=== PATIENT | male | born 1960 | race Caucasian/White ===

== ENCOUNTER → 2016-08-20 | Outpatient (CLI) | payer BC ==
[~2016-08-20] MED LIST: AUGMENTIN 875 M1 TA1 PO; CLARITIN10 MG PO; FORTE-PLUS-241 CAP PO; MOTRIN800 MG PO; PERCOCET 325 MG1 TA2 PO; TETRACYCLINE250 MG; VITAMIN D5000 I2 PO; ZANTAC 150150 MG PO; ZANTAC 300300 MG PO
== END | disposition home or self-care (01) ==
LOC: LAB 14:07 → RAD 14:07
DX: Z01.818 Encounter for other preprocedural examination (principal); K40.90 Unilateral inguinal hernia, without obstruction or gangrene, not specified as recurrent

== ENCOUNTER → 2016-08-21 | Outpatient (CLI) | payer BC ==
[2016-08-21 04:19] LABS: BILIRUBIN NEGATIVE (NEGATIVE); BLOOD NEGATIVE (NEGATIVE); CLARITY CLEAR (CLEAR); COLOR YELLOW (YELLOW); GLUCOSE NEGATIVE (NEGATIVE); KETONE NEGATIVE (NEGATIVE); LEUKO ESTERASE NEGATIVE (NEGATIVE); NITRITE NEGATIVE (NEGATIVE); PH 7.5 (5.0-9.0); PROTEIN NEGATIVE (NEGATIVE); UROBILINOGEN 0.2 E.U./dl (0.2-1.0)
[2016-08-21 04:20] LABS: BASO # 0.1 10*3/uL (0.0-0.1); BASO % 0.7 % (0.0-1.0); EOS # 0.4 10*3/uL (0.0-0.4); EOS % 5.3 % (1.0-4.0); HEMATOCRIT 47.5 % (42.0-52.0); HEMOGLOBIN 15.8 g/dl (14.0-18.0); LYMPH # 3.2 10*3/uL (1.3-4.4); LYMPH % 38.1 % (27.0-41.0); MEAN CELL VOLUME 93.3 fl (80.0-94.0); MEAN CORPUSCULAR HGB CONC 33.3 g/dl (33.0-37.0); MEAN PLATELET VOLUME 10.4 fl (9.6-12.3); MONO # 0.8 10*3/uL (0.1-1.0); MONO % 9.7 % (3.0-9.0); NEUT # 3.8 10*3/uL (2.3-7.9); PLATELET COUNT AUTOMATED 262 10*3/uL (130-400); RED BLOOD COUNT 5.09 10*6/uL (4.50-5.90); RED CELL DISTRI WIDTH 12.4 % (0-14.5); WHITE BLOOD COUNT 8.3 10*3/uL (4.8-10.8)
[2016-08-21 04:24] LABS: BACTERIA TRACE
[2016-08-21 04:29] LABS: PROTHROMBIN TIME 10.2 SECONDS (9.0-12.4)
[2016-08-21 04:31] LABS: BUN 15 mg/dl (7-24); CARBON DIOXIDE 31 mmol/L (21-32); CHLORIDE 103 mmol/L (98-107); EST GLOM FILT AFRICAN AMERICAN > 60 ml/min; GLUCOSE 106 mg/dL (65-99); POTASSIUM 4.2 mmol/L (3.5-5.1); SODIUM 142 mmol/L (136-145)
== END | disposition home or self-care (01) ==
LOC: LAB 08-20 14:10
PROVIDERS: Surgery
DX: K40.90 Unilateral inguinal hernia, without obstruction or gangrene, not specified as recurrent (principal)

== ENCOUNTER → 2016-08-26 | Day surgery (SDC) | payer BC ==
[2016-08-21 10:08] VITALS: BP 138/75
[~2016-08-26] VITALS: Ht 180.3 cm; Wt 77.1 kg
[2016-08-26] VITALS (7 sets, daily range): BP systolic 100–146; BP diastolic 56–84
--- NOTE | ~2016-08-26 | O ---
[place], [place] OPERATIVE NOTE [id number] UNIT #: [id number] ROOM: DOCTOR: MARK MORAN MD BIRTHDATE: [birth year] DOS: 08/26/2016 PREOPERATIVE DIAGNOSIS: Right inguinal hernia. POSTOPERATIVE DIAGNOSIS: Right inguinal hernia. PROCEDURE: Right inguinal hernia repair with plug and mesh (medium, lite). SURGEON: Mark Moran MD BURLAP WORKER: JANET. ANESTHESIA: General with endotracheal intubation. INDICATIONS: This is a 56-year-old gentleman with a history of a right-sided inguinal hernia who is here for the above-mentioned procedure. The procedure and its complications were explained to the patient in detail preoperatively. Complications that were discussed included, but were not limited to bleeding, infection, hematoma/seroma/abscess formation, prolonged postoperative pain, damage to underlying vital structures and recurrence. He agreed to proceed. DESCRIPTION OF PROCEDURE: After identifying the patient, the patient was brought to the operating suite and laid in the supine position. After induction of general anesthesia, the parts were then painted and draped in the usual sterile fashion. An incision was made parallel the right inguinal ligament. All this was preceded by a timeout procedure. The external oblique aponeurosis was incised in the line of its fibers. The cord structures were encircled with the help of a Олег drain and on further of evaluation it was found that the patient has direct inguinal hernia. The plug (medium, lite) was brought in and placed over the defect and sutured to the underlying upturned part of the inguinal ligament and overlying conjoined tendon in order to securely keep it in place. A mesh was then fashioned to size and then brought in and sutured to the upturned part of the inguinal ligament inferiorly and to the conjoined tendon superiorly with the help of 2-0 Prolene in a running fashion. The external oblique aponeurosis was approximated with the help of 0 Vicryl in a running fashion. The subcutaneous tissue was irrigated and approximated with the help of 3-0 Vicryl in a running fashion and the skin edges were approximated with the help of 4-0 Vicryl in a subcuticular running fashion. Local anesthesia was infiltrated and a dressing was placed. The patient tolerated the procedure well. There were no complications. Dr. Mark Moran, the attending surgeon, was present throughout the operating case. Note should be made that a small cord lipoma was excised before the repair was performed and was sent for histopathological diagnosis. [place], [place] OPERATIVE NOTE NAME: GARFIELD STARR UNIT #: [id number] ROOM: DOCTOR: MARK MORAN MD BIRTHDATE: [birth year] Mark Moran MD CM:OPRECORD:OPERATIVE NOTE [id number] MARK MORAN MD 08/26/16 1645 interface
== END | disposition home or self-care (01) ==
LOC: SDC 08-21 09:30
DX: K40.90 Unilateral inguinal hernia, without obstruction or gangrene, not specified as recurrent (principal); D17.6 Benign lipomatous neoplasm of spermatic cord; K21.9 Gastro-esophageal reflux disease without esophagitis; Z98.890 Other specified postprocedural states; Z80.9 Family history of malignant neoplasm, unspecified; E07.9 Disorder of thyroid, unspecified

== ENCOUNTER → 2017-02-21 | Outpatient (CLI) | payer OTHER | END | disposition home or self-care (01) | LOC: US 06:49 | DX: I86.1 Scrotal varices (principal) ==

== ENCOUNTER → 2018-04-15 | Outpatient (CLI) | payer OTHER | END | disposition home or self-care (01) | LOC: RAD 11:03 | DX: J44.9 Chronic obstructive pulmonary disease, unspecified (principal) ==